=== PATIENT | male | born 1955 | race Caucasian/White ===

== ENCOUNTER → 2021-10-21 | Outpatient (CLI) | payer MEDICARE ==
--- NOTE | 2021-10-21 09:35 | RAD ---
EXAM: ULTRASOUND ABDOMEN LIMITED CLINICAL HISTORY: Right upper quadrant abdominal pain COMPARISON: None available. TECHNIQUE: Limited ultrasound examination of the right upper quadrant of the abdomen was performed. FINDINGS: The pancreas, aorta, IVC are not well-visualized due to bowel gas. The gallbladder is mildly distende d. Mild increased echogenicity identified in the liver likely hepatic steatosis. The liver length reji sures 16.1 cm. Two cystic structures identified in the liver the largest measuring 2 cm probably cyst s containing septations.. The common bile duct measures 2.4 mm in transverse dimension. The right kid ruben measures 11.2 x 4.7 x 5.5 cm. IMPRESSION: 1. Hepatic steatosis. 2. Hepatic cysts. Electronically signed by: Tello Munson MD (10/21/2021 9:32 AM) [id number]
== END ==
LOC: US 08:33
PROVIDERS: ATTEND Nurse Practitioner Family
DX: K76.0 Fatty (change of) liver, not elsewhere classified (principal); K76.89 Other specified diseases of liver; N32.89 Other specified disorders of bladder
CPT/HCPCS: 76705

== ENCOUNTER → 2021-11-21 | Outpatient (CLI) | payer MEDICARE ==
[~2021-11-21] MED LIST: MAGN400C PO; OMEG-152 PO
--- NOTE | 2021-11-21 10:14 | EKG ---
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
[2021-11-21 10:23] LABS: BASO # 0.1 x10^3/uL (0.0-0.2); BASO % 1 % (0-3); EOS # 0.1 x10^3/uL (0.0-0.7); EOS % 3 % (0-3); HEMOGLOBIN 14.5 g/dL (13.0-17.5); LYMPH # 1.7 x10^3/uL (1.0-4.8); LYMPH % 30 % (24-48); MEAN CORPUSCULAR HEMOGLOBIN 32 pg (25-35); MEAN CORPUSCULAR HGB CONC 33 g/dL (31-37); MEAN CORPUSCULAR VOLUME 97 fL (79-100); MONO # 0.6 x10^3/uL (0.0-1.1); MONO % 11 % (0-9); NEUT # 3.1 x10^3/uL (1.8-7.7); NEUT % 55 % (31-73); PLATELET COUNT 194 x10^3/uL (140-400); RED BLOOD COUNT 4.55 x10^6/uL (4.30-5.70); RED CELL DISTRIBUTION WIDTH 13.9 % (11.5-14.5); WHITE BLOOD COUNT 5.6 x10^3/uL (4.0-11.0)
[2021-11-21 10:27] LABS: CALCIUM 8.6 mg/dL (8.5-10.1); CREATININE 0.7 mg/dL (0.7-1.3); GFR 112.5; POTASSIUM 4.4 mmol/L (3.5-5.1)
== END ==
LOC: SURGPAT 09:49
PROVIDERS: ATTEND Plastic Surgery
DX: Z01.818 Encounter for other preprocedural examination (principal); N64.4 Mastodynia
CPT/HCPCS: 36415; 80048; 85025; 93005

== ENCOUNTER → 2021-11-27 | Day surgery (SDC) | payer MEDICARE ==
[~2021-11-27] VITALS: Ht 180.3 cm; Wt 101.0 kg
[~2021-11-27] MED LIST changes: +BACITRACIN TOPICAL OINT PACKET. TP ONE; +BUPIVACAINE-EPI 0.25% 30 ML VIAL KIT. ONE; +DEXAMETHASONE SOD PHOS 4 MG/ML VIAL ONE; +HYDROmorphone 2 MG/ML INJ. IVP PRN; +IV RINGERS,LACTATED 1000ML 1,000 ML IV SCH; +KETOROLAC 30 MG/ML VIAL. ONE; +LIDOCAINE 1%/EPI 1:100,000 20 ML VIAL. ONE; +LIDOCAINE 2% PF 5 ML VIAL. ONE; +MORPHINE SULFATE 2 MG/ML INJ. IVP PRN; +ONDANSETRON PF 4 MG/2 ML VIAL. ONE; +PROCHLORPERAZINE 10 MG/2 ML VIAL. IVP PRN; +PROPOFOL 10 MG/ML (20ML) VIAL. IV ONE; +SEVOFLURANE 31 TO 60 MINUTES. IH ONE; +ePHEDrine PF IN SALINE 50 MG/10 ML SYRINGE. IV ONE; +fentaNYL PF VIAL 100 MCG/2 ML VIAL IVP PRN; +fentaNYL PF VIAL 100 MCG/2 ML VIAL ONE
[2021-11-27 06:16] VITALS: BP 150/71
[2021-11-27 09:35] VITALS: BP 110/65
--- NOTE | 2021-11-27 12:11 | PDOC4 ---
OPERATIVE NOTE Date: Date: Nov 27, 2021 Pre-Op Diagnosis: Digital mucous cyst of right middle finger Post-Op Diagnosis: Same Procedure Performed: Excision of digital mucous cyst of right middle finger, CPT 14739 Incision 8:10 AM8:38 AM Surgeon: Jacqueline Stone MD Anesthesia Type: General LMA Blood Loss: 1 cc Specimans Obtained: Digital mucous cyst Findings: See operative note Complications: None Operative Note: Informed consent was obtained in the perioperative holding area. The risk of recurrence, bleeding, infection, stiffness, pain, need for revision procedures were discussed with the patient. He understood and desired to proceed. The patient was taken to the operating room and placed on the OR table in the supine position. IV antibiotics were given. SCDs were placed. General anesthesia was induced. A timeout was completed verifying the correct patient and correct procedure. The right upper extremity was prepped with ChloraPrep and draped in a sterile fashion. A sterile tourniquet was placed. Esmarch bandage was used to exsanguinate the extremity and the tourniquet was inflated. A digital ring block was performed using a 50-50 mixture of 1% lidocaine with epinephrine +0.25% Marcaine. A #15 scalpel was used to make an incision along the radial border of the digit just beyond the cyst. Tenotomy scissors were used to dissect through the deep dermis down to the level of the joint. The cystic sac was ruptured and its contents suctioned. The sac was dissected with the tenotomy scissors down to his emanation from the DIP joint. No bony spurs were encountered. The cystic sac was sent to pathology for analysis. The wound was irrigated with a diluted Betadine solution. The tourniquet was deflated. Hemostasis was achieved with bipolar cautery. The skin was closed with 5-0 nylon suture. A sterile dressing was placed. The patient tolerated the procedure well. Total tourniquet time was noted. JACQUELINE STONE MD Nov 27, 2021 12:11
--- NOTE | 2021-11-28 18:06 | PATHOLOGY ---
[facility] Accession Number: [id number] . 01 Material submitted: . middle finger - MUCOUS CYST- RT MIDDLE FINGER. Modifiers: right . 02 Diagnosis: Dense fibroconnective tissue, right middle finger cyst excision: - Digital mucous cyst, ganglion type. (JPM:[facility]ides; 11/28/2021) QMS 11/28/2021 1456 Local . 02 Electronically signed: . Beni Martinez MD, Pathologist NPI- [id number] . 01 Gross description: . The specimen is received in formalin, labeled "Zumbrunn, Heladio, mucous cyst". Received is an irregular segment of pale white tissue measuring 1.3 cm in greatest dimension. The specimen is entirely submitted in cassette A1. ([facility]; 11/27/2021) NRI/NRI 11/27/2021 1810 Local . 02 Pathologist provided ICD-10: M67.441 . 02 CPT . 754754 Specimen Comment: A courtesy copy of this report has been sent to [phone], [phone] Specimen Comment: [id number] Specimen Comment: Report sent to / DR KUMARI Specimen Comment: A duplicate report has been generated due to demographic updates. Performed at: 01 [facility] [address], [place] [id number] MD Inder Garcia MD Phone: [phone] Performed at: 02 [facility] [address] [place], [place] [id number] MD Beni Martinez MD Phone: [phone]
== END | disposition home or self-care (01) ==
LOC: SURG 05:52
PROVIDERS: ATTEND Plastic Surgery
DX: M67.441 Ganglion, right hand (principal); M19.90 Unspecified osteoarthritis, unspecified site; Z72.89 Other problems related to lifestyle; Z88.0 Allergy status to penicillin; Z79.899 Other long term (current) drug therapy; Z98.890 Other specified postprocedural states
CPT/HCPCS: 26160; 88304; A4930; A6223; A6258; A6402; A6449; A6450; J0690; J1100; J1885; J2405; J2704; J3010; J3490; A4223; A4452; A6443; A6454